=== PATIENT | female | born 1940 | race Caucasian/White ===

== ENCOUNTER → 2020-04-07 | Outpatient (CLI) | payer OTHER | LOC: HYPER 13:05 | PROVIDERS: ATTEND Emergency Medicine | DX: R21 Rash and other nonspecific skin eruption (principal); S31.819A Unspecified open wound of right buttock, initial encounter; N95.0 Postmenopausal bleeding; L30.9 Dermatitis, unspecified; N95.1 Menopausal and female climacteric states; M25.50 Pain in unspecified joint; E78.5 Hyperlipidemia, unspecified; Z90.49 Acquired absence of other specified parts of digestive tract; X58.XXXA Exposure to other specified factors, initial encounter; Y93.89 Activity, other specified; Y92.89 Other specified places as the place of occurrence of the external cause; Y99.8 Other external cause status ==